=== PATIENT | female | born 1955 | race Caucasian/White ===

== ENCOUNTER → 2018-03-05 | Outpatient (CLI) | payer OTHER | END | disposition home or self-care (01) | LOC: PCVCIMAG 16:00 | DX: I10 Essential (primary) hypertension (principal); R07.9 Chest pain, unspecified; R06.09 Other forms of dyspnea; E78.5 Hyperlipidemia, unspecified | CPT/HCPCS: 93306 ==

== ENCOUNTER → 2019-07-25 | Outpatient (CLI) | payer OTHER ==
--- NOTE | 2019-07-26 15:55 | PCVCIMAG ---
APPROVED REPORT Study performed: 07/25/2019 09:46:29 EXAM: Comprehensive 2D, Doppler, and color-flow Echocardiogram Patient Location: Echo lab Room #: 3Status: routine BSA: 2.23 HR: 64 bpmBP: 138/66 mmHg Rhythm: NSR Other Information Study Quality: Adequate Technically limited study due to body habitus. Risk Factors: Cardiac Risk Factors: HTN Indications Murmur Dyspnea 2D Dimensions IVSd: 13.28 (7-11mm)LVOT Diam: 20.00 (18-24mm) LVDd: 47.17 mm PWd: 11.72 (7-11mm)Ascending Ao: 29.17 (22-36mm) LVDs: 30.48 (25-40mm) Left Atrium: 38.26 (27-40mm) Aortic Root: 22.86 mm LV Single Plane 4CH: 58.08 % LV Single Plane 2CH: 66.20 % Biplane EF: 61.6 % Volumes Left Atrial Volume (Systole) Single Plane 4CH: 56.31 mLSingle Plane 2CH: 57.82 mL LA ESV Index: 29.00 mL/m2 Aortic Valve AoV Peak Saad.: 2.91 m/s AO Peak Gr.: 33.81 mmHgLVOT Max P.65 mmHg AO Mean Gr.: 19.83 mmHgLVOT Mean P.95 mmHg AO V2 Mean: 2.11 m/sLVOT Max V: 1.17 m/s AO V2 VTI: 68.70 cmLVOT Mean V: 0.81 m/s JOHN (VTI): 1.22 [id number] V1 VTI: 27.74 cm JOHN Vmax: 1.21 cm2 SV (LVOT): 83.53 mL Mitral Valve E/A Ratio: 2.0 MV Decel. Time: 202.80 ms MV E Max Saad.: 1.19 m/s MV A Saad.: 0.61 m/s IVRT: 69.20 ms TDI E/Lateral E': 14.88E/Medial E': 19.83 Medial E' Saad.: 0.06 m/s Lateral E' Saad.: 0.08 m/s Pulmonary Valve PV Peak Saad.: 1.36 m/sPV Peak Gr.: 7.43 mmHg Pulmonary Vein P Vein S: 0.50 m/sP Vein A: 0.23 m/s P Vein D: 0.42 m/sP Vein A Dur.: 110.7 msec P Vein S/D Ratio: 1.19 Tricuspid Valve TR Peak Saad.: 2.34 m/sRAP Estimate: 7.00 mmHg TR Peak Gr.: 21.95 mmHg PA Pressure: 29.00 mmHg Left Ventricle The left ventricle is normal size. There is normal LV segmental wall motion. Mild to moderate concentric left ventricular hypertrophy. Left ventricular systolic function is normal. The left ventricular ejection fraction is within the normal range. LVEF is 60-65%. The left ventricular diastolic function is normal. Right Ventricle The right ventricle is normal size. The right ventricular systolic function is normal. Atria The left atrium size is normal. The right atrium size is normal. Aortic Valve Aortic valve leaflets are mildly thickened. No aortic regurgitation is present. The maximum aortic pressure gradient is 34 mmHg and the mean pressure gradient is 20 mmHg. The calculated aortic valve area is 1.2 cm2. Moderate aortic stenosis. Mitral Valve The mitral valve is normal in structure. Trace mitral regurgitation. No evidence of mitral valve stenosis. Tricuspid Valve The tricuspid valve is normal in structure. Trace tricuspid regurgitation. Pulmonary artery pressure is 29 mmHg. Pulmonic Valve The pulmonary valve is normal in structure. There is no pulmonic valvular regurgitation. Great Vessels The aortic root is normal in size. The ascending aorta is normal in size. IVC is normal in size and collapses >50% with inspiration. Pericardium There is no pericardial effusion. <Conclusion> The left ventricle is normal size. LVEF is 60-65%. Aortic valve leaflets are mildly thickened. The maximum aortic pressure gradient is 34 mmHg and the mean pressure gradient is 20 mmHg. The calculated aortic valve area is 1.2 cm2. Moderate aortic stenosis. The mitral valve is normal in structure. Trace mitral regurgitation. The tricuspid valve is normal in structure. Trace tricuspid regurgitation. Pulmonary artery pressure is 29 mmHg. There is no pericardial effusion.
== END | disposition home or self-care (01) ==
LOC: PCVCIMAG 09:37
PROVIDERS: ATTEND Internal Medicine
DX: I35.0 Nonrheumatic aortic (valve) stenosis (principal)
CPT/HCPCS: 93306